=== PATIENT | male | born 1945 | race Caucasian/White ===

== ENCOUNTER → 2017-03-02 | Outpatient (REF) | payer MEDICARE, OTHER | LOC: M LAB REF 14:51 | DX: D04.71 Carcinoma in situ of skin of right lower limb, including hip (principal) ==

== ENCOUNTER → 2019-09-22 | Outpatient (REF) | payer BC ==
[2019-09-22 18:54] LABS: APPEARANCE, URINE HAZY (CLEAR); BACTERIA, URINE AUTO NEGATIVE (NEGATIVE); BILIRUBIN, URINE AUTO NEGATIVE (NEGATIVE); BLOOD, URINE BLOOD NEGATIVE (NEGATIVE); CALCIUM OXALATE CRYSTALS MODERATE; COLOR, URINE YELLOW (YELLOW); GLUCOSE, URINE (UA) AUTO NEGATIVE (NEGATIVE); KETONE, URINE AUTO NEGATIVE (NEGATIVE); LEUKOCYTE ESTERASE, URINE AUTO NEGATIVE (NEGATIVE); NITRITE, URINE AUTO NEGATIVE (NEGATIVE); PROTEIN, URINE AUTO NEGATIVE (NEGATIVE); RBC, URINE AUTO 2 /HPF (0-3); SPECIFIC GRAVITY URINE AUTO 1.033 (1.002-1.035); SQUAMOUS EPITHELIAL CELL UR AU 0 /HPF (0-6); UROBILINOGEN, URINE AUTO 0.2 mg/dL (0.0-2.0); WBC, URINE AUTO 2 /HPF (0-3)
== END ==
LOC: M SMT 18:04
PROVIDERS: ATTEND Nurse Practitioner Family
DX: R32 Unspecified urinary incontinence (principal)

== ENCOUNTER 2019-12-07 06:06 | Day surgery (SDC) | payer MEDICARE, BC ==
[~2019-12-07] VITALS: Ht 162.6 cm; Wt 82.1 kg
[~2019-12-07 06:06] MED LIST: LR 1,000 ML IV ONE; ceFAZolin SOD 2 GM in IV 1 EA IV ONE
[2019-12-07] MEDS ORDERED: ATOR1TAB19 PO (06:57)
[2019-12-07] MEDS ORDERED: FINA5TAB2 PO (06:57)
[2019-12-07] MEDS ORDERED: ASPI-1 PO (06:57)
[2019-12-07] MEDS ORDERED: ceFAZolin 2 GM/D5W 50 ML IV BAG (J0690 PER 500MG) As Ordered ONE (06:58)
[2019-12-07] MEDS ORDERED: MYRB50TA PO (07:05)
[2019-12-07] MEDS ORDERED: D3400CAP PO (07:05)
[2019-12-07] MEDS ORDERED: MULTCAP PO (07:05)
[2019-12-07] MEDS ORDERED: FLOM0.4C39 PO (07:05)
[2019-12-07] MEDS ORDERED: METO1TAB7 PO (07:05)
[2019-12-07] MEDS ORDERED: CVS50CAP PO (07:05)
[2019-12-07] MEDS ORDERED: propofoL 200 MG/20 ML VIAL As Ordered ONE (07:12)
[2019-12-07] MEDS ORDERED: LIDOCAINE 2% 100MG/5ML SDV (FOR ANES.) As Ordered ONE (07:12)
[2019-12-07] MEDS ORDERED: fentaNYL 100 MCG/2 ML INJECTION (J3010) As Ordered ONE (07:13)
[2019-12-07] MEDS ORDERED: MIDAZOLAM INJ 2MG/2ML VIAL (J2250 PER 1MG) As Ordered ONE (07:14)
[2019-12-07] MEDS ORDERED: KETOROLAC 60MG 2ML VIAL As Ordered ONE (07:46)
[2019-12-07] MEDS ORDERED: dexameTHASONE 4 MG/ML 1ML VIAL (J1100 PER 1MG) As Ordered ONE (07:46)
[2019-12-07] MEDS ORDERED: ONDANSETRON 4MG/2ML VIAL As Ordered ONE (07:46)
[2019-12-07] MEDS ORDERED: BACT800T5 PO (08:17)
[2019-12-07] MEDS ORDERED: ACETAMINOPHEN TAB 650MG DOSE (2X325MG) PO PRN (08:30)
[2019-12-07] MEDS ORDERED: ONDANSETRON 4MG/2ML VIAL IV PRN (08:45)
[2019-12-07] MEDS ORDERED: MEPERIDINE INJ 25 MG/ML VIAL (J2175) IV PRN (08:45)
[2019-12-07] MEDS ORDERED: fentaNYL 100 MCG/2 ML INJECTION (J3010) IV PRN (08:45)
[2019-12-07] MEDS ORDERED: oxyCODONE 5MG TAB PO PRN (08:45)
[2019-12-07] MEDS ORDERED: METOCLOPRAMIDE INJ 10MG/2ML VIAL (J2765 PER 1) IV PRN (08:45)
[2019-12-07] MEDS ORDERED: LR 1,000 ML IV SCH (08:45)
[2019-12-07 10:45] VITALS: BP 107/70
--- NOTE | 2020-01-25 10:24 | RO ---
DATE OF OPERATION: December 07, 2019 PRE-PROCEDURE DIAGNOSIS: Urethral stricture. POST-PROCEDURE DIAGNOSIS: Urethral stricture. PROCEDURES: * Cystoscopy. * Direct vision internal urethrotomy. SURGEON: Gerardo Harvey MD. PASTRY BAKER: None. ANESTHESIA: General. OPERATIVE INDICATIONS: This is a 74-year-old male who was found to have a pretty narrow bulbar urethral stricture on office cystoscopy. He was brought to the operating room today for treatment. DESCRIPTION OF PROCEDURE: The patient was brought to the operating room and general anesthesia was induced. Prophylactic antibiotics were infused. He was placed in the dorsal lithotomy position, prepped, and draped in the usual sterile fashion. At this point, an urethrotome was advanced into the urethra and towards the bladder. At the level of the bulbar urethra, there was a very narrow stricture past which I could not advance the scope. I then utilized a cold knife to incise the stricture at 12:00 o'clock and I kept doing this until a small amount of bleeding was seen, indicating that we had gotten down to healthy tissue. Of note, the stricture was not long and at most, it was maybe 0.5 cm in length. Once the stricture was incised properly, I was able to advance the scope into the bladder. The bladder was thoroughly examined and no abnormalities were seen. At this point, the scope was withdrawn and an 18-[id number] Ng catheter was inserted into the bladder. The balloon was filled with 10 mL of sterile water. The catheter was connected to gravity drainage. This marked the conclusion of the procedure. The patient was taken out of the dorsal lithotomy position, awakened from anesthesia, and transferred to the recovery room in stable condition. ESTIMATED BLOOD LOSS: 5 mL. COMPLICATIONS: None. SPECIMEN: None. PLAN: The patient will follow up in the [facility] next week for catheter removal and a voiding trial. LEXY
== END 2019-12-07 11:10 | disposition home or self-care (01) ==
LOC: M SDC 06:06
PROVIDERS: ATTEND Urology
DX: N35.919 Unspecified urethral stricture, male, unspecified site (principal); I48.91 Unspecified atrial fibrillation; I10 Essential (primary) hypertension; E78.5 Hyperlipidemia, unspecified; K59.00 Constipation, unspecified; K21.9 Gastro-esophageal reflux disease without esophagitis; Z79.82 Long term (current) use of aspirin; Z79.899 Other long term (current) drug therapy; Z88.5 Allergy status to narcotic agent
CPT/HCPCS: 52276; J0690; J1100; J1885; J2250; J2405; J3010

== ENCOUNTER → 2020-02-27 | Outpatient (REF) | payer MEDICARE, BC ==
[~2020-02-27] MED LIST changes: +ASPI-1 PO; +ATOR1TAB19 PO; +BACT800T5 PO; +CVS50CAP PO; +D3400CAP PO; +FINA5TAB2 PO; +FLOM0.4C39 PO; -LR 1,000 ML IV ONE; +METO1TAB7 PO; +MULTCAP PO; +MYRB50TA PO; -ceFAZolin SOD 2 GM in IV 1 EA IV ONE
[2020-02-27 18:04] LABS: APPEARANCE, URINE HAZY (CLEAR); BACTERIA, URINE AUTO NEGATIVE (NEGATIVE); BILIRUBIN, URINE AUTO NEGATIVE (NEGATIVE); BLOOD, URINE BLOOD NEGATIVE (NEGATIVE); COLOR, URINE YELLOW (YELLOW); GLUCOSE, URINE (UA) AUTO NEGATIVE (NEGATIVE); KETONE, URINE AUTO NEGATIVE (NEGATIVE); LEUKOCYTE ESTERASE, URINE AUTO NEGATIVE (NEGATIVE); MUCUS, URINE SMALL (NEGATIVE); NITRITE, URINE AUTO NEGATIVE (NEGATIVE); PROTEIN, URINE AUTO NEGATIVE (NEGATIVE); RBC, URINE AUTO 0 /HPF (0-3); SPECIFIC GRAVITY URINE AUTO 1.018 (1.002-1.035); SQUAMOUS EPITHELIAL CELL UR AU 0 /HPF (0-6); UROBILINOGEN, URINE AUTO 0.2 mg/dL (0.0-2.0); WBC, URINE AUTO 1 /HPF (0-3)
== END ==
LOC: M SMT 17:10
PROVIDERS: ATTEND Urology
DX: R35.0 Frequency of micturition (principal)
CPT/HCPCS: 51798; 81001; 87086; G0463

== ENCOUNTER → 2020-05-31 | Outpatient (CLI) | payer MEDICARE, BC ==
--- NOTE | 2020-05-31 13:10 | REPVR ---
PROCEDURE INFORMATION: Exam: CT Maxillofacial Without Contrast, Sinus Exam date and time: 05/31/2020 12:57 PM Age: 74 years old Clinical indication: Pain; Other: Sinus; Additional info: Chronic maxillary sinusitis TECHNIQUE: Imaging protocol: CT Maxillofacial without contrast. Focus on the sinuses. Radiation optimization: All CT scans at this facility use at least one of these dose optimization techniques: automated exposure control; mA and/or kV adjustment per patient size (includes targeted exams where dose is matched to clinical indication); or iterative reconstruction. COMPARISON: No relevant prior studies available. FINDINGS: Frontal sinuses: Normal. No air-fluid levels. Ethmoid air cells: There is moderate ethmoid mucosal thickening asymmetric to the left. Sphenoid sinuses: Normal. No air-fluid levels. Maxillary sinuses: There is opacification of the left maxillary sinus. The left maxillary sinus infundibulum is obscured by mucosal thickening extending into the nasal cavity. Nasal cavity/Septum: Unremarkable. Orbital cavity: Orbits are normal. Globes are unremarkable. Bones/joints: Unremarkable. Soft tissues: Unremarkable. 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 Electronically signed by: Vibha Gonzalez On 05/31/2020 13:10:05 PM
== END ==
LOC: M RAD 12:47
PROVIDERS: ATTEND Specialist
DX: J32.0 Chronic maxillary sinusitis (principal)

== ENCOUNTER → 2022-05-11 | Outpatient (REF) | payer MEDICARE, BC ==
[2022-05-11 19:06] LABS: APPEARANCE, URINE MANUAL CLEAR (CLEAR); BILIRUBIN, URINE MANUAL NEGATIVE (NEGATIVE); COLOR, URINE MANUAL YELLOW (YELLOW); GLUCOSE, URINE (UA) MANUAL NEGATIVE (NEGATIVE); KETONE, URINE MANUAL NEGATIVE (NEGATIVE); PH,URINE MAN 5.5 UNITS (5.0 - 7.0); PROTEIN, URINE MANUAL NEGATIVE (NEGATIVE); UROBILINOGEN, URINE MANUAL NORMAL (NORMAL)
[2022-05-11 19:07] LABS: BLOOD URINE MANUAL NEGATIVE (NEGATIVE); LEUKOCYTE ESTERASE, URINE MAN NEGATIVE (NEGATIVE); NITRITE, URINE MANUAL NEGATIVE (NEGATIVE)
== END ==
LOC: M SMT 16:55
PROVIDERS: ATTEND Urology
DX: R97.20 Elevated prostate specific antigen [PSA] (principal)

== ENCOUNTER → 2022-06-02 | Outpatient (REF) | payer MEDICARE, BC | LOC: M SMT 12:42 | PROVIDERS: ATTEND Urology | DX: R97.20 Elevated prostate specific antigen [PSA] (principal) ==

== ENCOUNTER 2022-07-08 05:58 | Inpatient (IN) | payer MEDICARE, BC ==
[2022-07-08] VITALS (8 sets, daily range): BP systolic 98–114; BP diastolic 60–69
[~2022-07-08] VITALS: Ht 162.6 cm; Wt 88.5 kg
[~2022-07-08 05:58] MED LIST changes: +CETI10CA13 PO; +MULTTAB86 PO; +XARE20TA PO
[2022-07-08] MEDS ORDERED: LR 1,000 ML IV SCH (06:20)
[2022-07-08] MEDS ORDERED: HEPARIN SOD (PORCINE) 5000UNITS/ML 1ML VIAL/SYRINGE SQ ONE (07:00)
[2022-07-08] MEDS ORDERED: ceFAZolin SOD 2 GM in IV 1 EA IV ONE (07:00)
[2022-07-08] MEDS ORDERED: fentaNYL 100 MCG/2 ML INJECTION As Ordered ONE ×2 (07:09→11:55)
[2022-07-08] MEDS ORDERED: MIDAZOLAM INJ 2MG/2ML VIAL As Ordered ONE (07:10)
[2022-07-08] MEDS ORDERED: ONDANSETRON 4MG 2ML VIAL As Ordered ONE (07:11)
[2022-07-08] MEDS ORDERED: ROCURONIUM BROMIDE 50MG/5ML VIAL As Ordered ONE ×2 (07:11→11:04)
[2022-07-08] MEDS ORDERED: SUGAMMADEX SODIUM 500 MG/5 ML VIAL (BRIDION) As Ordered ONE (07:11)
[2022-07-08] MEDS ORDERED: propofoL 200 MG/20 ML VIAL As Ordered ONE (07:11)
[2022-07-08] MEDS ORDERED: LIDOCAINE 2% 100MG/5ML SDV (FOR ANES.) As Ordered ONE (07:11)
[2022-07-08] MEDS ORDERED: ONDANSETRON 4MG 2ML VIAL IV PRN ×2 (07:30→12:30)
[2022-07-08] MEDS ORDERED: ACETAMINOPHEN TAB 650MG DOSE (2X325MG) PO PRN (07:30)
[2022-07-08] MEDS ORDERED: PERCOCET 5MG/325MG TAB PO PRN (07:30)
[2022-07-08] MEDS ORDERED: LIDOCAINE 1% SDV 30ML VIAL As Ordered ONE (07:35)
[2022-07-08] MEDS ORDERED: BUPIVACAINE HCL 0.25% 30ML VIAL As Ordered ONE (07:35)
[2022-07-08] MEDS ORDERED: FLON1SPR NARES (07:38)
[2022-07-08] MEDS ORDERED: VITA100093 PO (07:38)
[2022-07-08] MEDS ORDERED: HOME MED LIST COMPLETE! XX SCH (07:40)
[2022-07-08] MEDS ORDERED: ACETAMINOPHEN 1000MG 100ML IV BAG As Ordered ONE (09:18)
[2022-07-08] MEDS ORDERED: KETOROLAC 60MG 2ML VIAL As Ordered ONE (09:19)
[2022-07-08] MEDS ORDERED: MORPHINE 2 MG/ML 1ML VIAL IV PRN (12:30)
[2022-07-08] MEDS ORDERED: fentaNYL 100 MCG/2 ML INJECTION IV PRN (12:30)
[2022-07-08] MEDS ORDERED: oxyCODONE 5MG TAB PO PRN (12:30)
[2022-07-08 12:56] LABS: HEMATOCRIT 41.8 % (42.0-52.0); HEMOGLOBIN 13.6 g/dl (13.5-17.5); MEAN CORPUSCULAR HEMOGLOBIN 30.4 pg (27.0-33.0); MEAN CORPUSCULAR HGB CONC 32.5 g/dl (32.0-36.5); MEAN CORPUSCULAR VOLUME 93.5 fl (80.0-96.0); PLATELET COUNT, AUTOMATED 189 10^3/uL (150-450); RED BLOOD COUNT 4.47 10^6/uL (4.30-6.10); WHITE BLOOD COUNT 9.3 10^3/uL (4.0-10.0)
[2022-07-08] MEDS: NS 1,000 ML IV SCH (13:27)
[2022-07-08 13:28] LABS: BLOOD UREA NITROGEN 16 MG/DL (9-23); CALCIUM LEVEL 8.6 MG/DL (8.3-10.6); CARBON DIOXIDE LEVEL 26 MMOL/L (20-31); CHLORIDE LEVEL 108 MMOL/L (98-107); GLOMERULAR FILTRATION RATE > 60.0 (>42); GLUCOSE, FASTING 141 MG/DL (74-106); POTASSIUM SERUM 4.6 MMOL/L (3.5-5.1); SODIUM LEVEL 140 MMOL/L (136-145)
[2022-07-08] MEDS: ceFAZolin SOD 1 GM in D5W MINI-BAG PLUS 50 ML IV SCH ×2 (15:17→23:29)
[2022-07-08] MEDS: PERCOCET 5MG/325MG TAB PO PRN ×2 (15:17→20:53)
[2022-07-08] MEDS: DOCUSATE SODIUM 100MG CAPSULE PO SCH (20:52)
[2022-07-08] MEDS: HEPARIN SOD (PORCINE) 5000UNITS/ML 1ML VIAL/SYRINGE SC SCH (20:54)
[2022-07-08] MEDS ORDERED: ATORVASTATIN 10 MG TAB PO SCH (21:00)
[2022-07-08] MEDS ORDERED: FLUTICASONE PROP 0.05% NASAL SPRAY 16 GM (FLONASE) NARES SCH (21:00)
[2022-07-09 02:00] VITALS: BP 96/58
[2022-07-09 03:13] VITALS: BP 98/60
[2022-07-09] MEDS: NS 1,000 ML IV SCH (03:30)
[2022-07-09] MEDS: HEPARIN SOD (PORCINE) 5000UNITS/ML 1ML VIAL/SYRINGE SC SCH ×2 (05:54→14:00)
[2022-07-09 05:58] VITALS: BP 102/58
[2022-07-09 06:04] LABS: HEMATOCRIT 35.8 % (42.0-52.0); HEMOGLOBIN 11.8 g/dl (13.5-17.5); PLATELET COUNT, AUTOMATED 181 10^3/uL (150-450); RED BLOOD COUNT 3.81 10^6/uL (4.30-6.10); WHITE BLOOD COUNT 9.9 10^3/uL (4.0-10.0)
[2022-07-09 06:32] LABS: BLOOD UREA NITROGEN 14 MG/DL (9-23); CALCIUM LEVEL 8.1 MG/DL (8.3-10.6); CARBON DIOXIDE LEVEL 26 MMOL/L (20-31); CHLORIDE LEVEL 108 MMOL/L (98-107); CREATININE FOR GFR 0.73 MG/DL (0.70-1.30); GLOMERULAR FILTRATION RATE > 60.0 (>42); GLUCOSE, FASTING 98 MG/DL (74-106); POTASSIUM SERUM 4.1 MMOL/L (3.5-5.1); SODIUM LEVEL 140 MMOL/L (136-145)
[2022-07-09] MEDS: DOCUSATE SODIUM 100MG CAPSULE PO SCH (09:29)
[2022-07-09] MEDS: PERCOCET 5MG/325MG TAB PO PRN (09:30)
[2022-07-09 10:00] VITALS: BP 98/58
[2022-07-09] MEDS ORDERED: COLA100C5 PO (12:50)
[2022-07-09] MEDS ORDERED: BACT800T5 PO (12:50)
[2022-07-09] MEDS ORDERED: PERCOCET PO (12:50)
== END 2022-07-09 14:49 | disposition home or self-care (01) | DRG 708 ==
LOC: M OR 05:58 → M MSPAV 13:17
PROVIDERS: ADMIT Urology; ATTEND Urology
PROC: 07BC4ZZ Excision of Pelvis Lymphatic, Percutaneous Endoscopic Approach (ICD-10-PCS; 2022-07-08)
PROC: 8E0W4CZ Robotic Assisted Procedure of Trunk Region, Percutaneous Endoscopic Approach (ICD-10-PCS; 2022-07-08)
PROC: 0VT04ZZ Resection of Prostate, Percutaneous Endoscopic Approach (ICD-10-PCS; principal; 2022-07-08 07:30)
DX: C61 Malignant neoplasm of prostate (principal); N52.9 Male erectile dysfunction, unspecified; E78.00 Pure hypercholesterolemia, unspecified; Z86.011 Personal history of benign neoplasm of the brain; Z79.899 Other long term (current) drug therapy; Z88.5 Allergy status to narcotic agent

== ENCOUNTER → 2022-08-31 | Outpatient (CLI) | payer MEDICARE, BC ==
[~2022-08-31] MED LIST changes: +COLA100C5 PO; +FLON1SPR NARES; +PERCOCET PO; +VITA100093 PO
== END ==
LOC: M SOG 07:57
PROVIDERS: ATTEND Orthopaedic Surgery
DX: M25.551 Pain in right hip (principal)

== ENCOUNTER → 2024-07-18 | Outpatient (REF) ==
[~2024-07-18] MED LIST changes: +CHOL10CA2 PO; -D3400CAP PO; +ELIQ5TAB PO; +SOLI10TA PO
== END ==
LOC: M LABCFH 10:58
DX: N39.0 Urinary tract infection, site not specified (principal)

== ENCOUNTER → 2024-07-28 | Day surgery (SDC) | payer MEDICARE, BC ==
[~2024-07-28] VITALS: Ht 162.6 cm; Wt 89.6 kg
[~2024-07-28] MED LIST changes: +ACETAMINOPHEN 1000MG/100ML IV BAG As Ordered ONE; +LIDOCAINE 2% 100MG/5ML SDV (FOR ANES.) As Ordered ONE; +LR 1,000 ML IV SCH; +MIDAZOLAM INJ 2MG/2ML VIAL As Ordered ONE; +ONDANSETRON 4MG 2ML VIAL As Ordered ONE; +dexmedeTOMIDine (4MCG/ML)200MCG/50ML BTL (PRECEDEX) As Ordered ONE; +fentaNYL 100 MCG/2 ML INJECTION As Ordered ONE; +flumazeniL 0.5MG/5ML VIAL As Ordered ONE; +propofoL 200 MG/20 ML VIAL As Ordered ONE
[2024-07-28] MEDS: ceFAZolin SOD 2 GM IV ONCE IV ONE (10:25)
[2024-07-28] MEDS: LIDOCAINE 2% 5ML JELLY UROJET As Ordered ONE (10:35)
[2024-07-28 11:00] VITALS: BP 95/54; TEMP 96.8; O2SAT 95
== END | disposition home or self-care (01) ==
LOC: M SDC 08:44
PROVIDERS: ATTEND Urology
DX: N39.3 Stress incontinence (female) (male) (principal); N32.81 Overactive bladder; E78.00 Pure hypercholesterolemia, unspecified; Z85.46 Personal history of malignant neoplasm of prostate; Z79.01 Long term (current) use of anticoagulants; Z79.899 Other long term (current) drug therapy; Z90.79 Acquired absence of other genital organ(s); Z88.5 Allergy status to narcotic agent
CPT/HCPCS: 51715; A4215; J0131; J0690; J1100; J2250; J2405; J3010; L8606